=== PATIENT | male | born 1945 ===

== ENCOUNTER 2021-10-02 05:00 | Outpatient (REF) | payer MEDICARE, SELFPAY | END 2021-10-02 05:01 | disposition home or self-care (01) | LOC: HO.MMNH2L 05:00 | PROVIDERS: Visit Provider Family Medicine | DX: Z13.89 Encounter for screening for other disorder (principal) ==

== ENCOUNTER 2021-10-17 05:00 | Outpatient (REF) | payer MEDICARE, SELFPAY | END 2021-10-17 05:01 | disposition home or self-care (01) | LOC: HO.MMNH2L 05:00 | PROVIDERS: Visit Provider Family Medicine | DX: Z13.89 Encounter for screening for other disorder (principal) ==

== ENCOUNTER 2021-10-23 05:00 | Outpatient (REF) | payer MEDICARE, SELFPAY | END 2021-10-23 05:01 | disposition home or self-care (01) | LOC: HO.MMNH2L 05:00 | PROVIDERS: Visit Provider Family Medicine | DX: Z13.89 Encounter for screening for other disorder (principal) ==

== ENCOUNTER 2021-10-30 05:00 | Outpatient (REF) | payer MEDICARE, SELFPAY | END 2021-10-30 05:01 | disposition home or self-care (01) | LOC: HO.MMNH2L 05:00 | PROVIDERS: Visit Provider Family Medicine | DX: Z13.89 Encounter for screening for other disorder (principal) ==

== ENCOUNTER 2021-11-06 05:00 | Outpatient (REF) | payer MEDICARE, SELFPAY | END 2021-11-06 05:01 | disposition home or self-care (01) | LOC: HO.MMNH2L 05:00 | PROVIDERS: Visit Provider Family Medicine | DX: Z13.89 Encounter for screening for other disorder (principal) ==

== ENCOUNTER 2021-11-13 05:00 | Outpatient (REF) | payer MEDICARE, SELFPAY | END 2021-11-13 05:01 | disposition home or self-care (01) | LOC: HO.MMNH2L 05:00 | PROVIDERS: Visit Provider Family Medicine | DX: Z13.89 Encounter for screening for other disorder (principal) ==

== ENCOUNTER 2021-11-21 05:00 | Outpatient (REF) | payer MEDICARE, SELFPAY | END 2021-11-21 05:01 | disposition home or self-care (01) | LOC: HO.MMNH2L 05:00 | PROVIDERS: Visit Provider Family Medicine | DX: Z13.89 Encounter for screening for other disorder (principal) ==

== ENCOUNTER 2021-12-04 07:01 | Outpatient (REF) | payer MEDICARE, SELFPAY | END 2021-12-04 07:02 | disposition home or self-care (01) | LOC: HO.MMNH2L 07:01 | PROVIDERS: Visit Provider Family Medicine | DX: Z13.89 Encounter for screening for other disorder (principal) ==

== ENCOUNTER 2021-12-11 05:00 | Outpatient (REF) | payer MEDICARE, SELFPAY | END 2021-12-11 05:01 | disposition home or self-care (01) | LOC: HO.MMNH2L 05:00 | PROVIDERS: Visit Provider Family Medicine | DX: Z13.89 Encounter for screening for other disorder (principal) ==

== ENCOUNTER 2021-12-25 06:52 | Outpatient (REF) | payer MEDICARE, SELFPAY | END 2021-12-25 06:53 | disposition home or self-care (01) | LOC: HO.MMNH2L 06:52 | PROVIDERS: Visit Provider Family Medicine | DX: Z13.89 Encounter for screening for other disorder (principal) ==

== ENCOUNTER 2022-08-01 15:20 | Outpatient (REF) | payer MEDICARE, MEDICAID, SELFPAY ==
[2022-08-01 16:31] LABS: IDNOW Serial# 08D9AD1C; Strep A Nucleic Acid Negative (Negative)
== END 2022-08-01 15:21 | disposition home or self-care (01) ==
LOC: HO.MMNH2L 15:20
PROVIDERS: Visit Provider Family Medicine
DX: Z11.2 Encounter for screening for other bacterial diseases (principal)
CPT/HCPCS: 36415; 87651

== ENCOUNTER 2023-01-09 16:14 | Emergency (ER) | payer MEDICARE, MEDICAID, SELFPAY ==
--- NOTE | ~2023-01-09 | CT_ITS ---
EXAMINATION: CT HEAD WITHOUT CONTRAST CT CERVICAL WITHOUT CONTRAST CLINICAL INFORMATION: Trauma. Pain. COMPARISON: None available. TECHNIQUE: Contiguous axial imaging was performed from the skullbase to vertex without intravenous administration of contrast. This CT examination was performed using dose optimization techniques as appropriate, variously including the following: *Automated exposure control. *Adjustment of mA and/or kV according to patient size (this includes techniques or standardized protocols for targeted exams where dose is matched to indication/reason for exam; i.e. extremities or head). *Use of iterative reconstruction technique. DLP: 962 mGy-cm FINDINGS: HEAD/BRAIN: There is cerebral volume loss with prominence of the lateral and the third ventricles. The cortical sulci are widened appropriately. The fourth ventricle and basal cisterns are normally outlined. There is jghn-qe-ssznjleg bilateral periventricular and central white matter diminished attenuation. There is no acute territorial defect, hemorrhage or midline shift. Calvarium/Scalp: The calvarium is intact. There is right frontal/forehead soft tissue swelling with apparent laceration. CERVICAL SPINE: There is straightening of the expected cervical spine curvature. There is diffuse amrs-bl-iqgikhjh cervical disc degenerative change with loss of disc space, endplate change and posterior osteophytes associated with diffuse zjop-bd-mjgburys facet osteoarthritic hypertrophic change with multilevel minimal spinal canal narrowing and mild bilateral neural foraminal narrowing. There is no fracture. The soft tissues are unremarkable. The visualized upper lung mcarthur are clear. CT/CT cervical spine wo IV con IMPRESSION: HEAD/BRAIN: Cerebral volume loss and jqly-ia-bydjefkr bilateral periventricular and central white matter diminished attenuation which is nonspecific but likely represent microvascular disease. CERVICAL SPINE: 1. Diffuse jjiu-ou-zwdllhjk cervical disc and facet degenerative change with straightening of the cervical spine curvature. 2. No fracture.
--- NOTE | ~2023-01-09 | CT_ITS ---
EXAMINATION: CT HEAD WITHOUT CONTRAST CT CERVICAL WITHOUT CONTRAST CLINICAL INFORMATION: Trauma. Pain. COMPARISON: None available. TECHNIQUE: Contiguous axial imaging was performed from the skullbase to vertex without intravenous administration of contrast. This CT examination was performed using dose optimization techniques as appropriate, variously including the following: *Automated exposure control. *Adjustment of mA and/or kV according to patient size (this includes techniques or standardized protocols for targeted exams where dose is matched to indication/reason for exam; i.e. extremities or head). *Use of iterative reconstruction technique. DLP: 962 mGy-cm FINDINGS: HEAD/BRAIN: There is cerebral volume loss with prominence of the lateral and the third ventricles. The cortical sulci are widened appropriately. The fourth ventricle and basal cisterns are normally outlined. There is ydpq-xu-leotwwep bilateral periventricular and central white matter diminished attenuation. There is no acute territorial defect, hemorrhage or midline shift. Calvarium/Scalp: The calvarium is intact. There is right frontal/forehead soft tissue swelling with apparent laceration. CERVICAL SPINE: There is straightening of the expected cervical spine curvature. There is diffuse bvxc-nh-kmuughhc cervical disc degenerative change with loss of disc space, endplate change and posterior osteophytes associated with diffuse cyte-oe-xgmczdkl facet osteoarthritic hypertrophic change with multilevel minimal spinal canal narrowing and mild bilateral neural foraminal narrowing. There is no fracture. The soft tissues are unremarkable. The visualized upper lung mcarthur are clear. CT/CT head/brain wo IV con IMPRESSION: HEAD/BRAIN: Cerebral volume loss and bbhf-rv-qtrfjrve bilateral periventricular and central white matter diminished attenuation which is nonspecific but likely represent microvascular disease. CERVICAL SPINE: 1. Diffuse mnlz-rk-alvwneqi cervical disc and facet degenerative change with straightening of the cervical spine curvature. 2. No fracture.
[2023-01-09 16:26] VITALS: BP 136/76; BP 145/71; PULSE 65; RESP 14; TEMP 36.6; O2SAT 98; BMI 22.0
--- NOTE | 2023-01-09 16:30 | ECG_ITS ---
Test Reason : CP Blood Pressure : / mmHG Vent. Rate : 068 BPM Atrial Rate : 068 BPM P-R Int : 170 ms QRS Dur : 084 ms QT Int : 402 ms P-R-T Axes : 072 -19 041 degrees QTc Int : 427 ms Normal sinus rhythm Normal ECG No previous ECGs available Referred By: Nic Short Electronically Signed By:CARIE CEE
--- NOTE | 2023-01-09 16:39 | ED_ITS ---
HPI - Fall General Chief Complaint: Fall Stated Complaint: Unwit fall w/ headstrike. neck and back pain Time Seen by Provider: 01/09/23 16:24 Source: patient and EMS Mode of arrival: EMS Limitations: other ( memory loss) History of Present Illness HPI Narrative: 76-year-old male presents with acute head injury. Was an unwitnessed fall at a senior living facility. Is unclear the circumstances of which took place. Patient does not remember falling down. At this time he denies any headache, nausea, vomiting. Denies any new focal deficits. He overall feels well. Has no acute complaints. Per EMS, patient was found to have a laceration on his forehead a additional findings. Related Data Home Medications Medication Instructions Recorded Confirmed atorvastatin 40 mg tablet 40 mg PO BEDTIME 01/09/23 01/09/23 calcium carbonate 200 mg calcium 200 mg PO Q2H PRN Indigestion 01/09/23 01/09/23 (500 mg) chewable tablet (Tums) insulin aspart U-100 100 unit/mL See Protocol subcut QIDACHS 01/09/23 01/09/23 (3 mL) subcutaneous pen (Novolog FlexPen U-100 Insulin aspart) insulin glargine 100 unit/mL (3 25 unit subcut DAILY 01/09/23 01/09/23 mL) subcutaneous pen (Lantus Solostar U-100 Insulin) polyethylene glycol 3350 17 17 g PO DAILY PRN Constipation 01/09/23 01/09/23 gram/dose oral powder Allergies Allergy/AdvReac Type Severity Reaction Status Date / Time No Known Allergies Allergy Verified 01/09/23 16:30 [facility] Social History Social History Smoked in Last 30 Days: No Use of substances other than those prescribed or required for medical reasons: No Advance Directives: No Advance Directives Information Provided: No Physical Exam Vital Signs: Vital Signs: Last Vital Signs Temp 97.7 F 01/09/23 22:00 Pulse 62 01/09/23 22:00 Resp 16 01/09/23 22:00 BP 116/61 01/09/23 22:00 Pulse Ox 98 01/09/23 22:00 O2 Del Method Room Air 01/09/23 22:00 BMI result Body Mass Index 22.0 GEN: Well developed, no acute distress, alert, oriented HEENT: Normocephalic, atraumatic, normal external ears, nose appears normal, no oropharyngeal edema or exudates Eyes: Normal to appearance Neck: Supple, no lymphadenopathy Respiratory: Talks in complete sentences, no respiratory distress, clear to auscultation bilaterally Cardiovascular: Regular rate and rhythm, no murmurs rubs or gallops Abdomen: Soft, nontender, nondistended, no guarding, no rebound Back: No CVA tenderness Extremities: No clubbing cyanosis or edema Neurologic: No focal neurologic deficits, cranial nerves 2-12 intact, strength is 5/5 bilaterally Skin: No rash Course Course Course Narrative: It is 10:30 PM. The work up is complete. PAtietn to be discharged. Patient refused to let me fully evaluate lac on forehead which has steristrips. Will leave and daughter is aware. A1c =14. I will recommend to increase Lantus to 15. Daughter reports this to be the case for some time and LTC facility not wi lling to change dose (per daughter). Medications Administered Discontinued Medications Generic Name Dose Route Start Last Admin Trade Name Freq PRN Reason Stop Dose Admin Sodium Chloride 1,000 mls @ 999 mls/hr 01/09/23 16:45 01/09/23 21:41 Ns IV 01/09/23 17:45 Infused .Q1H1M DELILAH Infusion Insulin Human Lispro 10 unit 01/09/23 17:24 01/09/23 17:33 Insulin Lispro 100 Unit/Ml 3 Ml Vial SUBCUT 01/09/23 17:25 10 unit ONCE ONE Administration Medical Decision Making Medical Decision Making [facility] Narrative: Patient presents is an unwitnessed fall. Will check a CT scan of the head and neck. Will check routine labs to rule out anemia, thrombocytopenia, electrolyte abnormality, renal dysfunction as a possible contributing feature to the fact that he fell. Patient was also noted to have a significantly elevated blood sugar. Will monitor this, treat appropriately and determine if patient needs a dmission. Differential Diagnosis Differential Diagnoses: The differential diagnosis associated with the presentation includes ( See above) Admission/Observation Consideration of admission/observation: Escalation of care including admission/observation considered Lab Data [facility] Lab Attestation statement: I reviewed the patient's lab results. 01/09/23 17:23 01/09/23 17:22 Labs: Lab Results 01/09/23 01/09/23 01/09/23 Range/Units 16:50 17:22 17:23 WBC 6.4 (4.8-10.8) X10*3/uL RBC 4.69 (4.60-5.80) X10*6/uL Hgb 12.2 L (14.0-18.0) g/dl Hct 38.7 L (42.0-52.0) % MCV 82.5 (80.0-98.0) fL MCH 26.0 L (27.0-33.0) pg MCHC 31.5 (31.0-36.0) g/dl RDW 12.7 (11.0-16.0) % Plt Count 141 L D (160-400) X10*3/uL MPV 10.5 (9.4-12.4) fL Immature Gran % (Auto) 0.2 (0.0-0.4) % Neut % (Auto) 64.1 (45-73) % Lymph % (Auto) 24.5 (20-40) % [place] % (Auto) 8.2 (2-11) % Eos % (Auto) 2.7 (0-4) % Baso % (Auto) 0.3 (0-2) % Lymph # (Auto) 1.6 (1.2-4.9) X10*3/uL [place] # (Auto) 0.5 (0.1-1.2) X10*3/uL Eos # (Auto) 0.2 (0.0-0.4) X10*3/uL Baso # (Auto) 0.0 (0.0-0.2) X10*3/uL Abs Immat Gran (auto) 0.01 (0.00-0.03) X10*3/uL Absolute Neuts (auto) 4.1 (2.0-8.3) x10*3/uL Absolute Nucleated RBC 0.000 (0.0-0.012) X10*3/uL Nucleated RBC % (auto) 0.0 (0.0-0.2) /100WBC Sodium 135 (135-145) mmol/L Potassium 4.4 (3.3-5.1) mmol/L Chloride 102 (96-108) mmol/L Carbon Dioxide 26 (22-29) mmol/L Anion Gap 11 L (12-20) BUN 8 L (9-16) mg/dL Creatinine 0.94 (0.5-1.4) mg/dL Estim Creat Clear Calc 64.8 Estimated GFR > 60 POC Glucose 403 H* (60-115) mg/dL Random Glucose 394 H* (60-115) mg/dL Estimat Average Glucose Hemoglobin A1c % (<6.0) % Calcium 9.7 D (8.4-10.2) mg/dL 01/09/23 01/09/23 Range/Units 17:23 21:39 WBC (4.8-10.8) X10*3/uL RBC (4.60-5.80) X10*6/uL Hgb (14.0-18.0) g/dl Hct (42.0-52.0) % MCV (80.0-98.0) fL MCH (27.0-33.0) pg MCHC (31.0-36.0) g/dl RDW (11.0-16.0) % Plt Count (160-400) X10*3/uL MPV (9.4-12.4) fL Immature Gran % (Auto) (0.0-0.4) % Neut % (Auto) (45-73) % Lymph % (Auto) (20-40) % [place] % (Auto) (2-11) % Eos % (Auto) (0-4) % Baso % (Auto) (0-2) % Lymph # (Auto) (1.2-4.9) X10*3/uL [place] # (Auto) (0.1-1.2) X10*3/uL Eos # (Auto) (0.0-0.4) X10*3/uL Baso # (Auto) (0.0-0.2) X10*3/uL Abs Immat Gran (auto) (0.00-0.03) X10*3/uL Absolute Neuts (auto) (2.0-8.3) x10*3/uL Absolute Nucleated RBC (0.0-0.012) X10*3/uL Nucleated RBC % (auto) (0.0-0.2) /100WBC Sodium (135-145) mmol/L Potassium (3.3-5.1) mmol/L Chloride (96-108) mmol/L Carbon Dioxide (22-29) mmol/L Anion Gap (12-20) BUN (9-16) mg/dL Creatinine (0.5-1.4) mg/dL Estim Creat Clear Calc Estimated GFR POC Glucose 90 (60-115) mg/dL Random Glucose (60-115) mg/dL Estimat Average Glucose TNP Hemoglobin A1c % > 14.0 H (<6.0) % Calcium (8.4-10.2) mg/dL Independent Interpretation I performed an independent interpretation of an: EKG ( Normal sinus rhythm heart rate 68, nonspecific T-wave changes, normal intervals, no acute ST elevations depressions) and CT Scan ( head and cervical spine: No acute traumatic injury) Radiology Impression Discussion of test interpretation with radiology: I have reviewed the radiologist's reading. Radiologist Impression: CT/CT cervical spine wo IV con IMPRESSION: HEAD/BRAIN: Cerebral volume loss and hjfg-gf-paupgina bilateral periventricular and central white matter diminished attenuation which is nonspecific but likely represent microvascular disease. ? CERVICAL SPINE: 1. Diffuse dopk-wd-agbruaiq cervical disc and facet degenerative change with straightening of the cervical spine curvature. 2. No fracture. ? ? Dictated By: Rodger Rojas Signed By: <Electronically signed by Jacinto Rojas in OV> 01/09/232030 Chronic Conditions Patient?s care impacted by: Diabetes Discharge Plan Discharge Clinical Impression: Acute head injury, Laceration of forehead, Uncontrolled diabetes mellitus with hyperglycemia Patient Disposition: er [facility] Instructions: Steristrips (ED), Head Injury (ED), Type 2 Diabetes in the Older Adult (ED) Additional Instructions: A1c =14, average blood sugar is greater than 350 on a regular basis. Target is 150. Increase Long acting insulin from 12 units to 15 units daily. Check A1c in 1-3 months. Prescriptions: No Action atorvastatin 40 mg tablet 40 mg PO BEDTIME calcium carbonate [Tums] 200 mg calcium (500 mg) Tablet,Chewable 200 mg PO Q2H PRN (Reason: Indigestion) polyethylene glycol 3350 17 gram/dose Powder 17 g PO DAILY PRN (Reason: Constipation) insulin aspart U-100 [Novolog FlexPen U-100 Insulin] 100 unit/mL (3 mL) insulin pen See Protocol subcut QIDACHS Protocol: Insulin Correction Scale Less than or equal to 110 ---- Give (units): 0 111 to 150 Give (units): 0 151 to 200 Give (units): 0 201 to 250 Give (units): 2 251 to 300 Give (units): 4 301 to 350 Give (units): 6 Greater than 350 Give (units): 8 Call MD if Blood Glucose > : 350 insulin glargine [Lantus Solostar U-100 Insulin] 100 unit/mL (3 mL) insulin pen 25 unit subcut DAILY Referrals: PhysicianMaryjane [Primary Care Provider] - (Primary Care in 1 week for review of glucose levels and insulin adjustment.)
[2023-01-09 16:53] LABS: Glucose, Whole Blood 403 mg/dL (60-115)
[2023-01-09 17:27] LABS: MANUAL DIFF FLAG NO
[2023-01-09] MEDS: 0.9 % Sodium Chloride 1,000 ML 999 ML IV (17:27)
[2023-01-09 17:29] LABS: Basophils Percent Auto 0.3 % (0-2); Eosinophils Absolute Auto 0.2 X10*3/uL (0.0-0.4); Eosinophils Percent Auto 2.7 % (0-4); Hematocrit 38.7 % (42.0-52.0); Hemoglobin 12.2 g/dl (14.0-18.0); Imm Gran Abs Auto 0.01 X10*3/uL (0.00-0.03); Imm Gran Pct Auto 0.2 % (0.0-0.4); Lymphocytes Absolute Auto 1.6 X10*3/uL (1.2-4.9); Lymphocytes Percent Auto 24.5 % (20-40); Mean Corpuscular HGB Conc 31.5 g/dl (31.0-36.0); Mean Corpuscular Volume 82.5 fL (80.0-98.0); Mean Platelet Volume 10.5 fL (9.4-12.4); Monocytes Absolute Auto 0.5 X10*3/uL (0.1-1.2); Monocytes Percent Auto 8.2 % (2-11); Neutrophils Absolute Auto 4.1 x10*3/uL (2.0-8.3); Neutrophils Percent Auto 64.1 % (45-73); Platelet Count 141 X10*3/uL (160-400); Red Blood Count 4.69 X10*6/uL (4.60-5.80); Red Cell Distribution Width 12.7 % (11.0-16.0); White Blood Count 6.4 X10*3/uL (4.8-10.8)
[2023-01-09] MEDS: Insulin Lispro 100 UNIT/ML 3 ML VIAL 10 UNIT SUBCUT (17:33)
--- NOTE | 2023-01-09 17:41 | PC.NURSE ---
Pt calm, pleasant on approach, [place] to name. Spoke with SNF and they stated his baseline is alert and orient to name but confused due to vascular dementia. Pt currently in C-collar, pending orders. HCP at bedside.
[2023-01-09 17:47] LABS: Anion Gap 11 (12-20); Blood Urea Nitrogen 8 mg/dL (9-16); Calcium 9.7 mg/dL (8.4-10.2); Carbon Dioxide 26 mmol/L (22-29); Chloride 102 mmol/L (96-108); Creatinine Clr Calc Pharmacy 64.8; Estimated Glomerular Filt Rate > 60; Glucose Random 394 mg/dL (60-115); Potassium 4.4 mmol/L (3.3-5.1); Sodium 135 mmol/L (135-145)
[2023-01-09 17:48] LABS: Hemoglobin A1c % > 14.0 % (<6.0)
[2023-01-09 18:20] VITALS: BP 139/82; PULSE 67; RESP 18; O2SAT 100
[2023-01-09 20:00] VITALS: BP 134/75; PULSE 72; RESP 16; TEMP 36.5; O2SAT 99
--- NOTE | 2023-01-09 20:23 | PHA.MEDREC ---
Pharmacy Consult ? Medication Reconciliation Pharmacy has completed the medication reconciliation. Patient came from [facility] with medication list. Meenu Nash, BradenD
[2023-01-09 21:43] LABS: Glucose, Whole Blood 90 mg/dL (60-115)
[2023-01-09 22:00] VITALS: BP 116/61; PULSE 62; RESP 16; TEMP 36.5; O2SAT 98
[2023-01-14 08:58] LABS: Methylmalonic Acid 93 nmol/L (87-318)
== END 2023-01-09 22:57 ==
PROVIDERS: Emergency Provider Emergency Medicine
DX: S01.81XA Laceration without foreign body of other part of head, initial encounter (principal); R51.9 Headache, unspecified; R07.89 Other chest pain; M54.2 Cervicalgia; E11.65 Type 2 diabetes mellitus with hyperglycemia; W01.10XA Fall on same level from slipping, tripping and stumbling with subsequent striking against unspecified object, initial encounter; Y93.9 Activity, unspecified; Y92.9 Unspecified place or not applicable; Y99.9 Unspecified external cause status; Z79.4 Long term (current) use of insulin; Z79.899 Other long term (current) drug therapy
CPT/HCPCS: 12011; 36415; 70450; 72125; 80048; 82947; 83036; 83921; 85025; 93005; 96360; 96361; 99284; 99285

== ENCOUNTER 2024-04-12 03:50 | Outpatient (REF) | payer MEDICARE, MEDICAID, SELFPAY ==
[2024-04-12 04:08] LABS: Appearance Urine Clear; Color Urine Yellow; Glucose Urine UA >=1000 mg/dL (Negative); Leukocyte Esterase Urine Negative (Negative); Nitrite Urine Negative (Negative); Specific Gravity - Urine >= 1.030 (1.005-1.025); UMIC TRIGGER UACC YES; Urine Blood Negative (Negative); Urine Ketones Trace mg/dL (Negative); Urine Protein Negative (Neg-Trace)
[2024-04-12 04:13] LABS: Bacteria Urine None Seen (None Seen); Hyaline Casts Urine 0-2 /LPF (0-2); RBC Urine 0-2 /HPF (0-2); Squamous Epithelial Cell Urine 0-2 /HPF (0-2); WBC Urine 0-5 /HPF (0-5)
== END 2024-04-12 03:51 | disposition home or self-care (01) ==
LOC: HO.LNP 03:50
PROVIDERS: Visit Provider Nurse Practitioner
DX: N39.0 Urinary tract infection, site not specified (principal)
CPT/HCPCS: 81001; 87086

== ENCOUNTER 2025-05-14 11:05 | Outpatient (REF) | payer MEDICARE, MEDICAID, SELFPAY ==
--- OUTSIDE RECORDS SUMMARY | 2025-05-14 11:16 | XMS_ITS | Data Portability ---
Author Organization [facility], Main Office Address [address], [address] [place] [address] Care Team Providers Care Last Turner Name Role Phone MIMI CHUNG 2ND FLOOR OTHER [phone] Assessment No assessment recorded. Plan of Treatment Reminders Order Date Submit Date Provider Last Modified By Organization Details Last Modified Time Details Appointments None record ed. Lab None record ed. Referral None record ed. Procedures None record ed. Surgeries None record ed. Imaging None record ed. Medication Orders None record ed. Patient TargetsNo targets recorded. Patient InstructionsNo instructions recorded. Reason for Referral None Reported. Problems Name Problem SNOMED Code Status Onset Date Resolution Date Notes Provider Name and Address Organization Details Recorded Time Vascular dementia 575299595 Active 2021 GLORIA PARKER NP [address], [address], [place], [address], [place] [facility] 2 11:44:59 Acute urinary tract infection 161340174 Active 2021 GLORIA PARKER NP [address], [address], [place], [address], [place] [facility] 2 11:45:08 Chronic obstructive pulmonary disease 41601635 Active 2021 GLORIA PARKER NP [address], [address], [place], [address], [place] [facility] 2 11:45:15 Hyperlipidemia 04331288 Active 2021 GLORIA PARKER NP [address], [address], [place], [address], [place] [facility] 2 11:45:24 Type 2 diabetes mellitus 08023543 Active 2021 GLORIA PARKER NP [address], [address], [place], [address], [place] [facility] 2 11:45:39 Left inguinal hernia 275130785 Active 2021 GLORIA PARKER NP [address], [place], [address], [facility] 2 12:37:03 Mass of urinary bladder 990646260 Active 2021 GLORIA PARKER NP [address], [address], [place], [address], [facility] 2 11:28:40 COVID-19 314794741 Active 2021 GLORIA PARKER NP [address], [place], [address], [facility] 2 12:58:14 Dental abscess 671726842 Active 2022 GLORIA PARKER NP [address], [place], [address], [facility] 3 12:43:45 Dry skin 02242016 Active 2022 BLE GLORIA PARKER NP [address], [address], [place], [address], [facility] 3 14:05:06 Osteoarthritis 352020719 Active 2022 Sharmaine Moise MD [address], [address], [place], [address], [facility] 3 21:16:10 Laceration of forehead 187585203 Active 2022 GLORIA PARKER NP [address], [address], [place], [address], [facility] 3 11:45:41 Fall Active 2022 GLORIA PARKER NP [address], [address], [place], [address], [facility] 3 11:46:07 Problem Notes None recorded. Medical Equipment None Reported. Allergies No known drug allergies Vitals Date Recorded Body height Provider Name an d Address Organization Details Last Updated DateTime 04/16/2023 167.64 cm GLORIA PARKER NP [address] [facility], [address], [place], [address], [facility] 04/16/2023 10:47:21 Date Recorded Body height Provider Name an d Address Organization Details Last Updated DateTime 04/23/2023 167.64 cm GLORIA PARKER NP [address], [address], [place], [address], [facility] 04/23/2023 10:35:41 Date Recorded Body height Heart rate Respiratory rate Body temperature Oxygen saturation Systolic And Diastolic Provider Name and Address Organization Details Last Updated DateTime 167.64 cm 79 /min 18 /min 97.3 [degF] 97 % 137/77 mm[Hg] Sharmaine Moise MD [address], [place], [address], [facility] 3 23:58:53 Date Recorded Body height Respiratory rate Provider N nakul and Address Organization Details Last Updated DateTime 04/30/2023 167.64 cm 16 /min GLORIA PARKER NP [address] [facility], [address], [place], [address], [facility] 04/30/2023 12:40:24 Date Recorded Body height Provider Name an d Address Organization Details Last Updated DateTime 05/01/2023 167.64 cm GLORIA PARKER NP [address] [facility], [address], [place], [address], [facility] 05/02/2023 09:11:00 Social History Question Answer Notes LastModified by Organizat ion Details LastModified Time Tobacco Smoking Status Former Smoker not sure how long he smoked, or when he quit Sharmaine Moise MD [address] [facility], [address], [place], [address], [facility] 07/20/2021 17:40:03 Do You Have An Advance Directive? Yes DNH Information not available 04/06/2022 What Is Your Code Status? DNR/DNI Information not available 07/19/2021 Where Do You Live? [facility], Previously Lived Alone In Elderly Housing Information not available 05/08/2023 Legal Guardian? No Informati on not available 07/20/2021 Do You Have A Medical Power Of Actuarial Associate? Yes HCP Invoked Information not available 04/06/2022 What Was The Date Of Your Most Recent Tobacco Screening? 07/20/2021 Information not available 07/20/2021 Do You Have An Out Of Hospital DNR? Yes Information not available 07/20/2021 What Is Your Relationship Status? Information not available 07/20/2021 Has Tobacco Cessation Counseling Been Provided? No N/a As Pt Soes Not Currently Smoke Information not available 07/20/2021 Sex: Unknown Functional Status Question Answer Note LastModified by Organizat ion Details LastModified Time Do you use any illicit or recreational drugs? No Information not available 07/19/2021 Do you or have you ever used any other forms of tobacco or nicotine? No Information not available 07/20/2021 What is your level of alcohol consumption? None Information not available 07/19/2021 Mental Status None recorded. Family History Nothing Reported Notes:n/c Medical History No medical history recorded. Past Encounters Encounter ID Performer Location Encounter Start Date Encounter Closed Date Diagnosis/Indication Diagnosis SNOMED-CT Code Diagnosis ICD10 Code Diagnosis IMO Codes Diagnosis Note [id number] AZRA KING [address] [place] [address] 07/19/2021 09:17:56 07/28/2021 11:54:46 Vascular dementia 632760405 F01.50 melatonin 6 mg hsmonitor and chart any changes in mood or behaviorsm ay need some antipsycho tic if delirium reoccures Type 2 daphnie betes mellitus 71429669 E11.9 glargine 14 unit dailymonit or glucoselis pr sliding scale Hyperlipidemia 00319056 E78.5 atorvastat in 40 mg daily Chronic ob structive pulmonary disease 72392612 J44.9 monitor resp status Acute urin min tract infection 987136428 N39.0 recovered [id number] MD MIMI Felton [address] [place] [address] 07/20/2021 17:32:52 07/28/2021 12:03:53 Vascular dementia 590328849 F01.50 Moderately severe, with progressiv e declineCon tinue melatonin 6 mg qhsContinu e supportive care, expect decline.HC P invokedMon itor mood and behaviors. Psych consult prn. Type 2 daphnie betes mellitus 93971818 E11.9 Sugars still running very high.Will increase Lantus from 14 U qd to 20U qd and continue SSI.Monito r accuchecks QID.Rechec k HgA1c in September. Hyperlipidemia 71045813 E78.49 Continue atorvastat in 40 mg qd.Chol was good in 04/2021.Mo nitor yearly. Chronic ob structive pulmonary disease 25803934 J43.8 With no current sxs.Monito r resp. sxs. Acute urin min tract infection 651290902 N30.80 Presumed UTI inpt. Completed abxs inpt.Monit or for sxs. [id number] GLORIA PARKER NP [address] [address] 07/26/2021 12:47:37 07/28/2021 15:37:14 Vascular dementia 573611878 F01.50 melatonin 6 mg hsmonitor and chart any changes in mood or behaviorsm ay need some antipsycho tic if delirium reoccures Chronic ob structive pulmonary disease 87525505 J43.8 monitor resp status [id number] GLORIA PARKER NP [address] [address] 07/28/2021 10:20:24 08/02/2021 16:24:04 Vascular dementia 009324932 F01.50 melatonin 6 mg hsmonitor and chart any changes in mood or behaviorsm ay need some antipsycho tic if delirium reoccurshc p invoked Chronic ob structive pulmonary disease 39055644 J43.8 monitor resp status [id number] GLORIA PARKER NP [address] [address] 07/31/2021 11:06:07 08/02/2021 19:56:51 Vascular dementia 010524968 F01.50 melatonin 6 mg hsmonitor and chart any changes in mood or behaviorsm ay need some antipsycho tic if delirium reoccurshc p invoked Type 2 daphnie betes mellitus 12781904 E11.9 glargine 14 unit dailymonit or glucoselis pr sliding scale Chronic ob structive pulmonary disease 27179962 J43.8 monitor resp status [id number] GLORIA PARKER NP [address] [address] 08/03/2021 10:59:36 08/07/2021 14:49:26 Vascular dementia 918252355 F01.50 melatonin 6 mg hsmonitor and chart any changes in mood or behaviorsm ay need some antipsycho tic if delirium reoccurshc p invoked Type 2 daphnie betes mellitus 91123458 E11.9 glargine 20 unit dailymonit or glucoselis pr sliding scale [id number] GLORIA PARKER NP [address] [address] 08/09/2021 09:01:53 08/16/2021 10:48:02 Vascular dementia 629535355 F01.50 melatonin 6 mg hsmonitor and chart any changes in mood or behaviorsm ay need some antipsycho tic if delirium reoccurshc p invoked Chronic ob structive pulmonary disease 86762711 J43.8 monitor resp status [id number] GLORIA PARKER NP [address] [address] 08/17/2021 10:43:04 08/22/2021 12:13:30 Vascular dementia 708556342 F01.50 melatonin 6 mg hsmonitor and chart any changes in mood or behaviorsm ay need some antipsycho tic if delirium reoccures Type 2 daphnie betes mellitus 91097662 E11.9 glargine 14 unit dailymonit or glucoselis pr sliding scale Hyperlipidemia 45825214 E78.5 atorvastat in 40 mg daily Chronic ob structive pulmonary disease 95585994 J44.9 monitor resp status Acute urin min tract infection 204357360 N39.0 recovered [id number] GLORIA PARKER NP [address] [address] 08/24/2021 10:55:02 08/29/2021 10:50:35 Vascular dementia 946708976 F01.50 melatonin 6 mg hsmonitor and chart any changes in mood or behaviors Chronic ob structive pulmonary disease 33148588 J44.9 monitor resp status [id number] GLORIA PARKER, AZRA [address] [address] 08/31/2021 10:39:35 09/04/2021 11:32:50 Vascular dementia 911412674 F01.50 melatonin 6 mg hsmonitor and chart any changes in mood or behaviors Type 2 daphnie betes mellitus 53865453 E11.9 glargine 14 unit dailymonit or glucoselis pr sliding scale Hyperlipidemia 31857677 E78.5 atorvastat in 40 mg daily Chronic ob structive pulmonary disease 96320513 J44.9 monitor resp status [id number] Missy Mcneill MD [address] [address] 09/20/2021 09:01:40 09/22/2021 12:02:26 Vascular dementia 571000925 F01.50 will monitor and support as neededexpe ct decline Type 2 daphnie betes mellitus 57603692 E11.9 Trulicity 0.75 mg SC weeklyNovo log per sliding scaleinsul in glargine 20U at hswill monitor Hyperlipidemia 81695918 E78.49 atorvastat in 40 mg dailywill monitor [id number] GLORIA PARKER NP [address] [address] 10/13/2021 10:44:54 10/18/2021 12:45:45 Vascular dementia 398248800 F01.50 melatonin 6 mg hsmonitor and chart any changes in mood or behaviorsm ay need some antipsycho tic if delirium reoccures Type 2 daphnie betes mellitus 13118642 E11.9 levemir 20 unit eveningtru licity 0.75 mg dailymonit or glucoselis pro sliding scale Hyperlipidemia 17293208 E78.5 atorvastat in 40 mg daily Chronic ob structive pulmonary disease 07903084 J44.9 monitor resp status [id number] Missy Mcneill MD [address] [address] 12/08/2021 07:10:55 12/14/2021 08:51:54 Vascular dementia 799166867 F01.50 will monitor and support as neededexpe ct decline Type 2 daphnie betes mellitus 93169057 E11.9 Trulicity 0.75 mg SC weeklyNovo log per sliding scaleLevem ir 20U daily in eveningwil l monitor Hyperlipidemia 58948634 E78.49 atorvastat in 40 mg dailywill monitor Osteoarthritis 294858792 M15.0 APAP 650 mg q6h prnwill monitor [id number] GLORIA PARKER NP [address] [address] 01/29/2022 12:36:11 02/13/2022 14:31:40 Left inguinal hernia 094369476 K40.90 surgical consult Vascular dementia 381612 004 F01.50 will monitor and support as neededexpe ct decline Type 2 daphnie betes mellitus 60117992 E11.9 Trulicity 0.75 mg SC weeklyNovo log per sliding scaleLevem ir 20U daily in eveningwil l monitor Hyperlipidemia 39910934 E78.49 atorvastat in 40 mg dailywill monitor Osteoarthritis 885504145 M15.0 APAP 650 mg q6h prnwill monitor [id number] GLORIA PARKER NP [address] [address] 01/31/2022 11:23:07 02/13/2022 15:19:11 Left inguinal hernia 069952420 K40.90 surgical appt 03/12monit or for incarcerat ed hernia Mass of ur inary bladder 177074815 N32.89 followup with urologymon itor voiding Vascular dementia 801639 004 F01.50 will monitor and support as neededexpe ct decline Type 2 daphnie betes mellitus 02418381 E11.9 Trulicity 0.75 mg SC weeklyNovo log per sliding scaleLevem ir 20U daily in eveningwil l monitor Hyperlipidemia 52075466 E78.49 atorvastat in 40 mg dailywill monitor Osteoarthritis 254157321 M15.0 APAP 650 mg q6h prnwill monitor [id number] Missy Mcneill MD [address] [address] 02/06/2022 13:33:54 02/13/2022 20:04:00 Pain in right arm 662969893 M79.601 suspect induration related to insulin injections :recommend use of different site for injections continue to monitor closely [id number] GLORIA PARKER, [place] [address] 03/07/2022 12:57:24 03/09/2022 15:55:29 COVID-19 662550412 U07.1 03/05 covid positiveen courage fluidscons ider ivf for anorexiaco nsider decadron for sobsend to ED for decompensa tion [id number] GLORIA PARKER, SNOWBOARDER MIMI SHELDON [address] [place] [address] 03/08/2022 13:12:59 03/13/2022 15:54:45 COVID-19 779296614 U07.1 03/05 covid positiveen courage fluidscons ider ivf for anorexiaco nsider decadron for sobsend to ED for decompensa tion [id number] GLORIA PARKER, SNOWBOARDER [facility] SHELDON [address] [place] [address] 03/09/2022 10:41:17 03/13/2022 16:07:26 COVID-19 738789514 U07.1 03/05 covid positiveen courage fluidscons ider ivf for anorexiaco nsider decadron for sobsend to ED for decompensa tion [id number] GLORIA PARKER, SNOWBOARDER MIMI CHUNG [address] [place] [address] 03/12/2022 11:56:16 03/15/2022 09:23:23 COVID-19 917495783 U07.1 03/05 covid positiveen courage fluidscons ider ivf for anorexiaco nsider decadron for sobsend to ED for decompensa tion [id number] GLORIA PARKER, SNOWBOARDER [facility] SHELDON [address] [place] [address] 03/14/2022 12:14:40 03/20/2022 12:30:22 COVID-19 290456273 U07.1 03/05 covid positiveen courage fluidscons ider ivf for anorexiaco nsider decadron for sobsend to ED for decompensa tion [id number] GLORIA PARKER, SNOWBOARDER [facility] SHELDON [address] [place] [address] 03/15/2022 12:49:17 03/20/2022 12:47:40 COVID-19 732735269 U07.1 03/05 covid positiveen courage fluidscons ider ivf for anorexiaco nsider decadron for sobsend to ED for decompensa tion Left inguinal hernia 236 663458 K40.90 surgical appt 03/12-post ponedmonit or for incarcerat ed hernia [id number] AZRA KING [address] [place] [address] 03/16/2022 12:15:28 03/20/2022 13:08:33 COVID-19 657943863 U07.1 03/05 covid positive-a symptomati c, recovered by dateencour age fluidscons ider ivf for anorexiaco nsider decadron for sobsend to ED for decompensa tion Vascular dementia 930442 004 F01.50 will monitor and support as neededexpe ct declineHCP invoked [id number] AZRA KING [address] [place] [address] 03/28/2022 11:36:47 03/30/2022 12:09:46 Left inguinal hernia 705706703 K40.90 surgical appt 03/12-canc eled due to covid, due to be reschedule dmonitor for incarcerat ed hernia Mass of ur inary bladder 772304174 N32.89 followup with urologymon itor voiding Vascular dementia 524882 004 F01.50 will monitor and support as neededexpe ct decline Type 2 daphnie betes mellitus 31558940 E11.9 Trulicity 0.75 mg SC weekly-enc ourage compliance will monitor Hyperlipidemia 20712965 E78.49 atorvastat in 40 mg dailywill monitor Osteoarthritis 043605930 M15.0 APAP 650 mg q6h prnwill monitor COVID-19 825162225 U07.1 03/05 covid positive-a symptomati c, recovered by dateencour age fluidscons ider ivf for anorexiaco nsider decadron for sobsend to ED for decompensa tion [id number] Sharmaine Levheim, MD [address] [address] 04/06/2022 17:34:26 04/10/2022 10:30:47 Type 2 diabetes mellitus 07397543 E11.9 Will d/c lantus and trulicity due to pt refusal. Will continue SSI for now, in case pt. sometimes agrees.Wit h nl renal function, so will start metformin 1000 mg BID. If sugars still out of range would consider adding SGLT2 inhibitor. Monitor accuchecks QID if pt allows. Vascular dementia 102091 004 F01.50 Continues to be moderately severe, with progressiv e declineCon tinue melatonin 6 mg qhsContinu e supportive care, expect decline.HC P invokedMon itor mood and behaviors. Psych consult prn. [id number] Missy Mcneill MD [address] [address] 05/09/2022 07:49:36 05/25/2022 09:17:34 Vascular dementia 858844095 F01.50 will monitor and support as neededexpe ct decline Type 2 daphnie betes mellitus 11738651 E11.9 metformin 1000 mg bidNovolog per sliding scalewill monitor Left inguinal hernia 236 272854 K40.90 PCP to consider reschedule of hernia repairwill monitor Hyperlipidemia 73698909 E78.49 atorvastat in 40 mg dailywill monitor [id number] GLORIA PARKER NP [address] [address] 06/28/2022 11:28:52 07/02/2022 15:11:00 Vascular dementia 947564743 F01.50 will monitor and support as neededexpe ct decline Type 2 daphnie betes mellitus 53966536 E11.9 metformin 1000 mg bidNovolog per sliding scalewill monitor Left inguinal hernia 236 887560 K40.90 HCP to consider reschedule of hernia repairwill monitor Hyperlipidemia 95683227 E78.49 atorvastat in 40 mg dailywill monitor Chronic ob structive pulmonary disease 29729659 J44.9 monitor resp status GLORIA PARKER NP [address] [address] 07/03/2022 14:02:20 07/24/2022 09:33:48 Type 2 diabetes mellitus 79172266 E11.9 metformin 1000 mg bidNovolog per sliding scaleglarg ine 10 units dailywill monitor Vascular dementia 177807 004 F01.50 will monitor and support as neededexpe ct decline [id number] Jose A Cunningham MD [address] [address] 07/05/2022 12:05:53 07/20/2022 15:06:19 Uncontrolled type 2 diabetes mellitus 117783073 E11.65 > 1 hour spent in team meetingin depth discussion with family with patient presentinc rease finger sticks to tidmonitor SS utilizatio n and reassess in 1 week to adjust dose of long actingd/c metformin at family request [id number] GLORIA PARKER NP [address] [address] 07/26/2022 12:27:44 08/01/2022 14:29:18 Vascular dementia 836294585 F01.50 will monitor and support as neededexpe ct decline Type 2 daphnie betes mellitus 90898240 E11.9 galrgine 10 units hsNovolog per sliding scalewill monitor Left inguinal hernia 236 733648 K40.90 HCP to consider reschedule of hernia repairwill monitor Hyperlipidemia 93022125 E78.49 atorvastat in 40 mg dailywill monitor Chronic ob structive pulmonary disease 06554706 J44.9 monitor resp status Dental abscess 209063204 K04.7 amoxacilli n 500 mg bid to 07/31hcp scheduled dental appt [id number] GLORIA PARKER NP [address] [address] 08/15/2022 13:56:33 08/17/2022 15:36:53 Type 2 diabetes mellitus 89866149 E11.9 galrgine 25 units hsNovolog per sliding scale bidwill monitor Dry skin 51614861 L85.3 ammonium lactate lotion bid BLE [id number] Missy Mcneill MD [address] [address] 08/22/2022 07:56:15 08/29/2022 12:21:44 Vascular dementia 997033253 F01.50 will monitor and support as neededexpe ct decline Type 2 daphnie betes mellitus 65642591 E11.9 Lantus 25U dailyNovol og per sliding scalewill monitor Hyperlipidemia 34371000 E78.49 atorvastat in 40 mg dailywill monitor Osteoarthritis 186141063 M15.0 APAP 650 mg q6h prnwill monitor [id number] GLORIA PARKER, SNOWBOARDER [address] [address] 08/29/2022 11:14:03 09/04/2022 12:16:46 Type 2 diabetes mellitus 71525615 E11.9 glargine 25 units hsNovolog per sliding scale bidwill monitor [id number] GLORIA KINCAIDADI, AZRA [address] [address] 09/05/2022 13:56:34 09/07/2022 16:00:46 Type 2 diabetes mellitus 63023060 E11.9 glargine 25 units hsNovolog per sliding scale bidwill monitorcon tinues to refuse intermitte ntly Vascular dementia 029643 004 F01.50 will monitor and support as neededexpe ct decline [id number] GLORIA KINCAIDADI, SNOWBOARDER [address] [address] 09/12/2022 12:54:13 09/14/2022 13:19:18 Type 2 diabetes mellitus 65245951 E11.9 glargine 25 units hsNovolog per sliding scale bidwill monitorcon tinues to refuse intermitte ntly [id number] GLORIA ELENA SNOWBOARDER [address] [address] 09/21/2022 12:51:45 09/26/2022 17:18:11 Type 2 diabetes mellitus 38726530 E11.9 glargine 25 units hsNovolog per sliding scale bidwill monitorcon tinues to refuse intermitte ntly Vascular dementia 053357 004 F01.50 will monitor and support as neededexpe ct decline [id number] GLORIA KINCAIDADI, SNOWBOARDER [address] [address] 09/26/2022 14:25:35 09/28/2022 15:48:31 Type 2 diabetes mellitus 88196078 E11.9 glargine 25 units hsNovolog per sliding scale bidwill monitorcon tinues to refuse intermitte ntly [id number] GLORIA PARKER NP [address] [address] 10/03/2022 10:15:20 10/05/2022 15:21:38 Type 2 diabetes mellitus 58222106 E11.9 glargine 25 units hsNovolog per sliding scale bidwill monitorcon tinues to refuse intermitte ntly Vascular dementia 145095 004 F01.50 will monitor and support as neededexpe ct decline [id number] GLORIA PARKER NP [facility] e [address] [place] [address] 10/10/2022 11:47:27 10/19/2022 16:03:06 Type 2 diabetes mellitus 37200976 E11.9 glargine 25 units hsNovolog per sliding scale bidwill monitor for symptoms of hyper/hypo glycemiaco ntinues to refuse intermitte ntly [id number] GLORIA PARKER NP [address] [address] 10/17/2022 12:11:06 10/25/2022 11:16:13 Type 2 diabetes mellitus 05780914 E11.9 glargine 25 units hsNovolog per sliding scale bidwill monitor for symptoms of hyper/hypo glycemiaco ntinues to refuse intermitte ntly Vascular dementia 524280 004 F01.50 will monitor and support as neededexpe ct declinewou ld benefit from a secure dementia unit Hyperlipidemia 85757546 E78.49 atorvastat in 40 mg dailywill monitor Osteoarthritis 280016816 M15.0 APAP 650 mg q6h prnwill monitor [id number] GLORIA PARKER NP [address] [address] 10/24/2022 12:01:36 10/30/2022 12:12:49 Type 2 diabetes mellitus 07952710 E11.9 glargine 25 units hsNovolog per sliding scale bidwill monitor for symptoms of hyper/hypo glycemiaco ntinues to refuse intermitte ntly [id number] GLORIA PARKER NP [address] [place] [address] 10/31/2022 12:32:36 11/02/2022 12:07:11 Type 2 diabetes mellitus 04038691 E11.9 glargine 25 units hsNovolog per sliding scale bidwill monitor for symptoms of hyper/hypo glycemiaco ntinues to refuse intermitte ntly [id number] GLORIA PARKER NP [address] [address] 11/07/2022 12:54:05 11/09/2022 15:03:29 Vascular dementia 580554897 F01.50 will monitor and support as neededexpe ct declinewou ld benefit from a secure dementia unit Type 2 daphnie betes mellitus 36103157 E11.9 glargine 25 units hsNovolog per sliding scale bidwill monitor for symptoms of hyper/hypo glycemiaco ntinues to refuse intermitte ntly [id number] GLORIA PARKER NP [address] [address] 11/14/2022 12:23:02 11/28/2022 15:17:56 Type 2 diabetes mellitus 49142865 E11.9 glargine 25 units hsNovolog per sliding scale bidwill monitor for symptoms of hyper/hypo glycemiaco ntinues to refuse intermitte ntly [id number] GLORIA PARKER NP [address] [address] 11/21/2022 11:28:09 11/28/2022 17:06:03 Type 2 diabetes mellitus 49629857 E11.9 glargine 25 units hsNovolog per sliding scale bidwill monitor for symptoms of hyper/hypo glycemiaco ntinues to refuse Vascular dementia 810476 004 F01.50 will monitor and support as neededexpe ct declinewou ld benefit from a secure dementia unit 676798 GLORIA PARKER NP [address] [address] 11/28/2022 13:27:37 12/04/2022 16:18:03 Type 2 diabetes mellitus 62522197 E11.9 glargine 25 units hsNovolog per sliding scale bidwill monitor for symptoms of hyper/hypo glycemiaco ntinues to refuse Vascular dementia 686191 F01.50 will monitor and support as neededexpe ct declinewou ld benefit from a secure dementia unit [id number] GLORIA PARKER NP [address] [address] 12/05/2022 13:01:20 12/07/2022 15:54:21 Type 2 diabetes mellitus 75050669 E11.9 glargine 25 units hsNovolog per sliding scale bidwill monitor for symptoms of hyper/hypo glycemiaco ntinues to refuse Vascular dementia 609125 F01.50 will monitor and support as neededexpe ct declinewou ld benefit from a secure dementia unit [id number] GLORIA PARKER NP [address] [address] 12/12/2022 14:37:40 12/14/2022 16:30:40 Type 2 diabetes mellitus 01824689 E11.9 glargine 25 units hsNovolog per sliding scale bidwill monitor for symptoms of hyper/hypo glycemiaco ntinues to refuse Vascular dementia 254897 F01.50 will monitor and support as neededexpe ct declinewou ld benefit from a secure dementia unit [id number] GLORIA PARKER NP [address] [address] 5 12/19/2022 12:47:52 12/21/2022 14:45:29 Type 2 diabetes mellitus 85939213 E11.9 glargine 25 units hsNovolog per sliding scale bidwill monitor for symptoms of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
[2025-05-14 11:20] LABS: MANUAL DIFF FLAG NO
[2025-05-14 11:55] LABS: Hematocrit 44.8 % (42.0-52.0); Hemoglobin 13.2 g/dl (14.0-18.0); Imm Gran Abs Auto 0.06 X10*3/uL (0.00-0.03); Imm Gran Pct Auto 0.7 % (0.0-0.4); Lymphocytes Absolute Auto 1.5 X10*3/uL (1.2-4.9); Mean Corpuscular HGB Conc 29.5 g/dl (31.0-36.0); Mean Corpuscular Hemoglobin 25.9 pg (27.0-33.0); Mean Corpuscular Volume 87.8 fL (80.0-98.0); NRBC Abs Auto 0.000 X10*3/uL (0.0-0.012); NRBC Pct Auto 0.0 /100WBC (0.0-0.2); Platelet Count 247 X10*3/uL (160-400); Red Blood Count 5.10 X10*6/uL (4.60-5.80); White Blood Count 8.7 X10*3/uL (4.8-10.8)
[2025-05-14 12:06] LABS: Alanine Aminotransferase < 6 U/L (0-40); Albumin Level 3.3 g/dL (3.5-5.0); Alkaline Phosphatase 92 U/L (39-117); Anion Gap 13 (12-20); Aspartate Amino Transferase 16 U/L (5-37); Blood Urea Nitrogen 22 mg/dL (9-16); Calcium 9.1 mg/dL (8.4-10.2); Carbon Dioxide 29 mmol/L (22-29); Chloride 117 mmol/L (96-108); Estimated Glomerular Filt Rate > 60; Magnesium 2.6 mg/dL (1.6-2.6); Potassium 3.7 mmol/L (3.3-5.1); Sodium 155 mmol/L (135-145); Total Protein 6.9 g/dL (6.5-8.0)
== END 2025-05-14 11:06 | disposition home or self-care (01) ==
LOC: HO.WMHL 11:05
PROVIDERS: Visit Provider Nurse Practitioner
DX: R19.5 Other fecal abnormalities (principal); R53.83 Other fatigue
CPT/HCPCS: 36415; 80053; 83735; 85025